=== PATIENT | male | born 1980 | race African-American/Black ===

== ENCOUNTER 2017-11-22 14:36 | Inpatient (IN) | payer SELFPAY ==
[~2017-11-22] VITALS: Ht 190.5 cm; Wt 68.0 kg
[2017-11-22 14:56] LABS: BASO # 0.1 x10^3/uL (0.0-0.2); BASO % 1 % (0-3); EOS # 0.3 x10^3/uL (0.0-0.7); EOS % 3 % (0-3); HEMATOCRIT 42.4 % (39.0-53.0); HEMOGLOBIN 14.2 g/dL (13.0-17.5); LYMPH # 4.7 x10^3/uL (1.0-4.8); LYMPH % 53 % (24-48); MEAN CORPUSCULAR HEMOGLOBIN 29 pg (25-35); MEAN CORPUSCULAR HGB CONC 34 g/dL (31-37); MEAN CORPUSCULAR VOLUME 87 fL (79-100); MONO # 0.6 x10^3/uL (0.0-1.1); MONO % 7 % (0-9); NEUT # 3.1 x10^3uL (1.8-7.7); NEUT % 36 % (31-73); PLATELET COUNT 238 x10^3/uL (140-400); RED BLOOD COUNT 4.89 x10^6/uL (4.30-5.70); RED CELL DISTRIBUTION WIDTH 14.6 % (11.5-14.5); WHITE BLOOD COUNT 8.8 x10^3/uL (4.0-11.0)
[2017-11-22 15:05] LABS: CALCIUM 9.1 mg/dL (8.5-10.1); CREATININE 1.6 mg/dL (0.7-1.3); GFR 59.5; POTASSIUM 3.7 mmol/L (3.5-5.1)
--- NOTE | 2017-11-22 15:09 | PHYS DOC ---
Past Medical History Past Medical History: Bipolar, Depression Past Surgical History: Other Additional Past Surgical Histo: I&D scrutum/rectum, hemhorridectomy Alcohol Use: Occasionally Drug Use: Marijuana, Other Social History Narrative: MDMA Adult General Chief Complaint Chief Complaint: CHEST PAIN HPI HPI 37-year-old male presenting with chest pain. Sharp shooting pain that radiates into the left arm. It is moderate, he denies recent cocaine use though reports ecstasy use approximately a week ago. He denies fevers chills or cough. He denies recent retching. He denies family history of heart disease hypertension diabetes or high cholesterol. He denies unilateral leg swelling hemoptysis personal or family should blood clotting disorders or recent surgery or immobilization. He denies a family history of Marfan's or Carrie-Danlos syndrome. Review of systems is negative for abdominal pain nausea vomiting diaphoresis fevers chills. All other review of systems is negative unless otherwise noted in history of present illness. ED course: 37-year-old male presenting to the emergency department today with chest pain. EKG obtained and reviewed by myself shows sinus rhythm with a mildly bradycardic rate. ST segments are congruent. Not suggestive of ACS. Blood work obtained along with chest x-ray. X-ray shows moderate-sized pneumothorax. Chest tube pigtail valve catheter placed which reexpanded lung. X- ray afterwards shows small residual pneumothorax. I spoke with Dr. Gibbs who agrees with the care so far. We will admit the patient to Dr. STONER for further evaluation treatment and care. HEART SCORE History Slightly suspicious 0 Moderately suspicious +1 Highly suspicious +2 EKG 1 point: No ST depression but LBBB, LVH, repolarization changes (ex: digoxin); 2 points: ST depression/elevation not due to LBBB, LVH, or digoxin Normal 0 Non-specific repolarization disturbance +[address] depression +2 Age <45 0 45-65 +1 65 +2 Risk factors Risk factors: HTN, hypercholesterolemia, DM, obesity (BMI >30 kg/m), smoking (current, or smoking cessation 3 mo), positive family history (parent or sibling with CVD before age 65); atherosclerotic disease: prior CT, PCI/CABG, CVA/TIA, or peripheral arterial disease No known risk factors 0 1-2 risk factors +1 3 risk factors or history of atherosclerotic disease +2 Initial troponin Use local assays and corresponding cutoffs normal limit 0 1-2 normal limit +1 >2 normal limit +2 Total 0 points Wells Score Clinical signs and symptoms of DVT No 0 Yes +3 PE is #1 diagnosis OR equally likely No 0 Yes +3 Heart rate > 100 No 0 Yes +1.5 Immobilization at least 3 days OR surgery in the previous 4 weeks No 0 Yes +1.5 Previous, objectively diagnosed PE or DVT No 0 Yes +1.5 Hemoptysis No 0 Yes +1 Malignancy w/ treatment within 6 months or palliative No 0 Yes +1 TOTAL 0 Points Review of Systems Review of Systems SEE ABOVE. Current Medications Current Medications Current Medications Medications (Trade) Dose Ordered Sig/Heriberto Start Time Stop Time Status Last Admin Dose Admin Acetaminophen (Tylenol) 650 mg PRN Q6HRS PRN 11/22/17 18:00 Acetaminophen/ Hydrocodone Bitart (Lortab 5/325) 1 tab PRN Q4HRS PRN 11/22/17 18:00 Docusate Sodium (Colace) 100 mg PRN DAILY PRN 11/22/17 18:00 Enoxaparin Sodium (Lovenox 40mg Syringe) 40 mg DAILY 11/23/17 09:00 Fentanyl Citrate (Fentanyl 2ml Vial) 50 mcg PRN Q30MIN PRN 11/22/17 16:45 11/22/17 16:50 50 MCG Morphine Sulfate (Morphine Sulfate) 2 mg PRN Q2HR PRN 11/22/17 18:00 Multi-Ingredient Mouthwash/Gargle (Gi Cocktail) 20 ml 1X ONCE 11/22/17 15:15 11/22/17 15:16 DC 11/22/17 15:30 20 ML Ondansetron HCl (Zofran) 4 mg PRN Q6HRS PRN 11/22/17 18:00 Sodium Chloride 1,000 ml @ 100 mls/hr Q10H 11/22/17 16:41 11/23/17 16:40 11/22/17 16:41 100 MLS/HR Tramadol HCl (Ultram) 50 mg PRN Q6HRS PRN 11/22/17 18:00 Allergies Allergies Allergies Coded Allergies Type Severity Reaction Last Updated Verified No Known Drug Allergies 07/10/13 No Physical Exam Physical Exam SEE ABOVE Constitutional: Well developed, well nourished, no acute distress, non-toxic appearance. [] HENT: Normocephalic, atraumatic, bilateral external ears normal, oropharynx moist, no oral exudates, nose normal. [] Eyes: PERRLA, EOMI, conjunctiva normal, no discharge. [] Neck: Normal range of motion, no tenderness, supple, no stridor. [] Cardiovascular:Heart rate regular rhythm, no murmur [] Lungs & Thorax: Patient has lung sounds bilaterally without wheezing. Abdomen: Bowel sounds normal, soft, no tenderness, no masses, no pulsatile masses. [] Skin: Warm, dry, no erythema, no rash. [] Back: No tenderness, no CVA tenderness. [] Extremities: No tenderness, no cyanosis, no clubbing, ROM intact, no edema. [] no signs of dvt Neurologic: Alert and oriented X 3, normal motor function, normal sensory function, no focal deficits noted. [] Psychologic: Affect normal, judgement normal, mood normal. [] Current Patient Data Vital Signs Vital Signs Date Time Temp Pulse Resp B/P (MAP) Pulse Ox O2 Delivery O2 Flow Rate FiO2 11/22/17 16:56 67 19 127/66 (86) 99 Room Air 11/22/17 14:36 98.0 98.0 Lab Values Laboratory Tests Test 11/22/17 14:50 White Blood Count 8.8 x10^3/uL (4.0-11.0) Red Blood Count 4.89 x10^6/uL (4.30-5.70) Hemoglobin 14.2 g/dL (13.0-17.5) Hematocrit 42.4 % (39.0-53.0) Mean Corpuscular Volume 87 fL (79-100) Mean Corpuscular Hemoglobin 29 pg (25-35) Mean Corpuscular Hemoglobin Concent 34 g/dL (31-37) Red Cell Distribution Width 14.6 % (11.5-14.5) H Platelet Count 238 x10^3/uL (140-400) Neutrophils (%) (Auto) 36 % (31-73) Lymphocytes (%) (Auto) 53 % (24-48) H Monocytes (%) (Auto) 7 % (0-9) Eosinophils (%) (Auto) 3 % (0-3) Basophils (%) (Auto) 1 % (0-3) Neutrophils # (Auto) 3.1 x10^3uL (1.8-7.7) Lymphocytes # (Auto) 4.7 x10^3/uL (1.0-4.8) Monocytes # (Auto) 0.6 x10^3/uL (0.0-1.1) Eosinophils # (Auto) 0.3 x10^3/uL (0.0-0.7) Basophils # (Auto) 0.1 x10^3/uL (0.0-0.2) D-Dimer (Brigette) < 0.27 ug/mlFEU Sodium Level 141 mmol/L (136-145) Potassium Level 3.7 mmol/L (3.5-5.1) Chloride Level 104 mmol/L (98-107) Carbon Dioxide Level 26 mmol/L (21-32) Anion Gap 11 (6-14) Blood Urea Nitrogen 17 mg/dL (8-26) Creatinine 1.6 mg/dL (0.7-1.3) H Estimated GFR (Cockcroft-Gault) 59.5 Glucose Level 129 mg/dL (70-99) H Calcium Level 9.1 mg/dL (8.5-10.1) Total Bilirubin 0.4 mg/dL (0.2-1.0) Direct Bilirubin 0.1 mg/dL (0.0-0.2) Aspartate Amino Transferase (AST) 17 U/L (15-37) Alanine Aminotransferase (ALT) 22 U/L (16-63) Alkaline Phosphatase 48 U/L (46-116) Troponin I Quantitative < 0.017 ng/mL (0.000-0.055) Total Protein 7.6 g/dL (6.4-8.2) Albumin 3.9 g/dL (3.4-5.0) Lipase 135 U/L (73-393) Laboratory Tests 11/22/17 14:50 Laboratory Tests 11/22/17 14:50 EKG EKG [] Radiology/Procedures Radiology/Procedures [] Course & Med Decision Making Course & Med Decision Making Pertinent Labs and Imaging studies reviewed. (See chart for details) [] Dragon Disclaimer Dragon Disclaimer This electronic medical record was generated, in whole or in part, using a voice recognition dictation system. Departure Departure Impression: Primary Impression: Chest pain Additional Impressions: Pneumothorax Pneumothorax on left Disposition: 09 ADMITTED INPATIENT Condition: STABLE Referrals: NON,STAFF (PCP) Chest Tube Chest Tube Indication: MOD left sided ptx Consent: The patient provided consent for this procedure. Procedure: The patient was placed in an appropriate position. Local anesthesia over the insertion site was 5 cc of 1%lidocaine. An small incision was made. A small pigtail catheter was advanced over the rib until access was obtained into the pleural cavity. Pigtail catheter was connected to pleurivac and then to a one way valve. The tube was sutured in place and the site was covered with an occlusive dressing. Breath sounds after the procedure were bilateral. A chest x-ray was obtained to evaluate placement which showed very mild residual. The patient tolerated the procedure well. Complications: none. Critical Care Time Critical care time spent was 36 minutes exclusive of procedures. Time was spent evaluating the patient, ordering the administration of medications, reevaluating the patient, discussing with the admitting provider and documenting. Problem Qualifiers OCTAVIO SHARMA MD Nov 22, 2017 15:09
[2017-11-22 15:11] LABS: ALBUMIN 3.9 g/dL (3.4-5.0); DIRECT BILIRUBIN 0.1 mg/dL (0.0-0.2); TOTAL BILIRUBIN 0.4 mg/dL (0.2-1.0); TOTAL PROTEIN 7.6 g/dL (6.4-8.2)
[2017-11-22] MEDS ORDERED: LIDO:MAALOX 1:1 20 ML SINGLE DOSE. PO ONE (15:15)
--- NOTE | 2017-11-22 15:52 | RAD ---
Portable chest, 11/22/2017: HISTORY: Chest pain The heart size is normal. There is a moderate sized left pneumothorax estimated at 30-40 percent in volume. There is no definite evidence of tension. No pulmonary infiltrate is seen. There is no evidence of pleural fluid. IMPRESSION: Moderate sized left pneumothorax. Note: The findings were called to personnel the [facility] ER at 3:48 PM on 11/22/2017. Electronically signed by: Remy Adams MD (11/22/2017 3:49 PM) [facility]
--- NOTE | 2017-11-22 15:52 | EKG ---
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
[2017-11-22] MEDS ORDERED: fentaNYL PF VIAL 100 MCG/2 ML VIAL ONE (16:21)
[2017-11-22] MEDS ORDERED: fentaNYL PF VIAL 100 MCG/2 ML VIAL IV ONE (16:30)
[2017-11-22] MEDS: IV NORMAL SALINE 1000ML BAG 1,000 ML IV SCH (16:41)
[2017-11-22] MEDS ORDERED: ONDANSETRON PF 4 MG/2 ML VIAL. IV PRN ×2 (16:45→18:00)
[2017-11-22] MEDS ORDERED: MORPHINE SULFATE 2 MG/ML VIAL. IV PRN ×2 (16:45→18:00)
--- NOTE | 2017-11-22 16:49 | RAD ---
EXAM: Chest, single view. HISTORY: Thoracostomy tube placement. COMPARISON: Radiograph obtained on the same date. FINDINGS: A frontal view of the chest is obtained. There has been placement of a left thoracostomy tube overlying the left upper lung. There has been interval decrease in a now small left pneumothorax. There is no pleural effusion. The heart is normal in size. IMPRESSION: Decrease in a now small left pneumothorax status post thoracostomy tube placement. Electronically signed by: Nereyda Glover MD (11/22/2017 4:45 PM) [place] [id number]
[2017-11-22] MEDS: fentaNYL PF VIAL 100 MCG/2 ML VIAL IV PRN ×2 (16:50→20:50)
[2017-11-22] MEDS ORDERED: ACETAMINOPHEN 325 MG TABLET. PO PRN (18:00)
[2017-11-22] MEDS ORDERED: DOCUSATE SODIUM 100 MG CAPSULE. PO PRN (18:00)
[2017-11-22] MEDS ORDERED: traMADol 50 MG TABLET PO PRN (18:00)
[2017-11-22 20:05] VITALS: BP 127/69
--- NOTE | 2017-11-22 20:06 | RAD ---
AP portable chest radiograph 11/22/2017 Clinical History: Pneumothorax follow-up. An AP erect portable digital radiograph of the chest was obtained. Comparison study is dated earlier today at 1629 hours. Small bore left-sided thoracostomy tube is unchanged position. There is a small moderate-sized left pneumothorax which has increased in size since the previous study. The cardiac and mediastinal silhouettes are within normal limits in size and configuration. The right lung is clear. No pulmonary infiltrate or pleural effusion is noted. The osseous structures are unchanged. Impression: Left-sided thoracostomy tube is unchanged position. There has been interval increase in size in the small to moderate-sized left pneumothorax. Electronically signed by: Malcom Connell MD (11/22/2017 8:02 PM) [facility]
--- NOTE | 2017-11-22 20:14 | PDOC1 ---
History and Physical Date of Admission Date of Admission 11/22/17 Identification/Chief Complaint Chief Complaint sob, chest pain Source Source: Chart review, Patient History of Present Illness History of Present Illness HPI HPI 37-year-old male presenting with chest pain and sob today. pT was walking today outside, suddenly felt left side chest pain, sharp, with sob, felt could not breath, came to ER. <1ppd. denies trauma, no cough, fever, chills. ER xr Showed left side moderate pneumothorax, got pig tail chest tube by ERP. cxr SHOWED better and sob better, still pain tho. Past Medical History Past Medical History anxiety Past Surgical History Past Surgical History I&D scrutum/rectum, hemhorridectomy Family History Family History: Hypertension Social History Smoke: <1 pack per day ALCOHOL: social Drugs: Marijuana Current Problem List Problem List Problems Medical Problems: (1) Chest pain Status: Acute (2) Pneumothorax Status: Acute (3) Pneumothorax on left Status: Acute Current Medications Current Medications Current Medications Medications (Trade) Dose Ordered Sig/Heriberto Start Time Stop Time Status Last Admin Dose Admin Acetaminophen (Tylenol) 650 mg PRN Q6HRS PRN 11/22/17 18:00 Acetaminophen/ Hydrocodone Bitart (Lortab 5/325) 1 tab PRN Q4HRS PRN 11/22/17 18:00 Docusate Sodium (Colace) 100 mg PRN DAILY PRN 11/22/17 18:00 Enoxaparin Sodium (Lovenox 40mg Syringe) 40 mg DAILY 11/23/17 09:00 Fentanyl Citrate (Fentanyl 2ml Vial) 50 mcg PRN Q30MIN PRN 11/22/17 16:45 11/22/17 16:50 50 MCG Morphine Sulfate (Morphine Sulfate) 2 mg PRN Q2HR PRN 11/22/17 18:00 Multi-Ingredient Mouthwash/Gargle (Gi Cocktail) 20 ml 1X ONCE 11/22/17 15:15 11/22/17 15:16 DC 11/22/17 15:30 20 ML Ondansetron HCl (Zofran) 4 mg PRN Q6HRS PRN 11/22/17 18:00 Sodium Chloride 1,000 ml @ 100 mls/hr Q10H 11/22/17 16:41 11/23/17 16:40 11/22/17 16:41 100 MLS/HR Tramadol HCl (Ultram) 50 mg PRN Q6HRS PRN 11/22/17 18:00 Allergies Allergies Allergies Coded Allergies Type Severity Reaction Last Updated Verified No Known Drug Allergies 07/10/13 No ROS Review of System CONSTITUTIONAL: No fever or chills EYES: No recent changes SKIN: No rash or itching CARDIOVASCULAR: No chest pain, syncope, palpitations, or edema RESPIRATORY: No SOB or cough GASTROINTESTINAL: No nausea, vomiting or abdominal pain NEUROLOGICAL: No headaches or weakness ENDOCRINE: No cold or heat intolerance GENITOURINARY: No urgency or frequency of urination MUSCULOSKELETAL: No back pain or joint pain LYMPHATICS: No enlarged lymph nodes PSYCHIATRIC: No anxiety or depression Physical Exam Physical Exam GEN.: No apparent distress. Alert and oriented. HEENT: Head is normocephalic, atraumatic NECK: Supple. LUNGS: decreased bs on left side, has a chest tube in place. HEART: RRR, S1, S2 present. Peripheral pulses intact ABDOMEN: Soft, nontender. Positive bowel sounds. EXTREMITIES: Without any cyanosis. NEUROLOGIC: Normal speech, normal tone PSYCHIATRIC: Normal affect, normal mood. SKIN: No ulcerations Vitals Vitals Vital Signs Date Time Temp Pulse Resp B/P (MAP) Pulse Ox O2 Delivery O2 Flow Rate FiO2 11/22/17 19:00 62 16 119/68 (85) 100 Room Air 11/22/17 14:36 98.0 98.0 Labs Labs Laboratory Tests Test 11/22/17 14:50 White Blood Count 8.8 x10^3/uL (4.0-11.0) Red Blood Count 4.89 x10^6/uL (4.30-5.70) Hemoglobin 14.2 g/dL (13.0-17.5) Hematocrit 42.4 % (39.0-53.0) Mean Corpuscular Volume 87 fL (79-100) Mean Corpuscular Hemoglobin 29 pg (25-35) Mean Corpuscular Hemoglobin Concent 34 g/dL (31-37) Red Cell Distribution Width 14.6 % (11.5-14.5) Platelet Count 238 x10^3/uL (140-400) Neutrophils (%) (Auto) 36 % (31-73) Lymphocytes (%) (Auto) 53 % (24-48) Monocytes (%) (Auto) 7 % (0-9) Eosinophils (%) (Auto) 3 % (0-3) Basophils (%) (Auto) 1 % (0-3) Neutrophils # (Auto) 3.1 x10^3uL (1.8-7.7) Lymphocytes # (Auto) 4.7 x10^3/uL (1.0-4.8) Monocytes # (Auto) 0.6 x10^3/uL (0.0-1.1) Eosinophils # (Auto) 0.3 x10^3/uL (0.0-0.7) Basophils # (Auto) 0.1 x10^3/uL (0.0-0.2) D-Dimer (Brigette) < 0.27 ug/mlFEU Sodium Level 141 mmol/L (136-145) Potassium Level 3.7 mmol/L (3.5-5.1) Chloride Level 104 mmol/L (98-107) Carbon Dioxide Level 26 mmol/L (21-32) Anion Gap 11 (6-14) Blood Urea Nitrogen 17 mg/dL (8-26) Creatinine 1.6 mg/dL (0.7-1.3) Estimated GFR (Cockcroft-Gault) 59.5 Glucose Level 129 mg/dL (70-99) Calcium Level 9.1 mg/dL (8.5-10.1) Total Bilirubin 0.4 mg/dL (0.2-1.0) Direct Bilirubin 0.1 mg/dL (0.0-0.2) Aspartate Amino Transf (AST/SGOT) 17 U/L (15-37) Alanine Aminotransferase (ALT/SGPT) 22 U/L (16-63) Alkaline Phosphatase 48 U/L (46-116) Troponin I Quantitative < 0.017 ng/mL (0.000-0.055) Total Protein 7.6 g/dL (6.4-8.2) Albumin 3.9 g/dL (3.4-5.0) Lipase 135 U/L (73-393) Laboratory Tests Test 11/22/17 14:50 White Blood Count 8.8 x10^3/uL (4.0-11.0) Red Blood Count 4.89 x10^6/uL (4.30-5.70) Hemoglobin 14.2 g/dL (13.0-17.5) Hematocrit 42.4 % (39.0-53.0) Mean Corpuscular Volume 87 fL (79-100) Mean Corpuscular Hemoglobin 29 pg (25-35) Mean Corpuscular Hemoglobin Concent 34 g/dL (31-37) Red Cell Distribution Width 14.6 % (11.5-14.5) Platelet Count 238 x10^3/uL (140-400) Neutrophils (%) (Auto) 36 % (31-73) Lymphocytes (%) (Auto) 53 % (24-48) Monocytes (%) (Auto) 7 % (0-9) Eosinophils (%) (Auto) 3 % (0-3) Basophils (%) (Auto) 1 % (0-3) Neutrophils # (Auto) 3.1 x10^3uL (1.8-7.7) Lymphocytes # (Auto) 4.7 x10^3/uL (1.0-4.8) Monocytes # (Auto) 0.6 x10^3/uL (0.0-1.1) Eosinophils # (Auto) 0.3 x10^3/uL (0.0-0.7) Basophils # (Auto) 0.1 x10^3/uL (0.0-0.2) D-Dimer (Brigette) < 0.27 ug/mlFEU Sodium Level 141 mmol/L (136-145) Potassium Level 3.7 mmol/L (3.5-5.1) Chloride Level 104 mmol/L (98-107) Carbon Dioxide Level 26 mmol/L (21-32) Anion Gap 11 (6-14) Blood Urea Nitrogen 17 mg/dL (8-26) Creatinine 1.6 mg/dL (0.7-1.3) Estimated GFR (Cockcroft-Gault) 59.5 Glucose Level 129 mg/dL (70-99) Calcium Level 9.1 mg/dL (8.5-10.1) Total Bilirubin 0.4 mg/dL (0.2-1.0) Direct Bilirubin 0.1 mg/dL (0.0-0.2) Aspartate Amino Transf (AST/SGOT) 17 U/L (15-37) Alanine Aminotransferase (ALT/SGPT) 22 U/L (16-63) Alkaline Phosphatase 48 U/L (46-116) Troponin I Quantitative < 0.017 ng/mL (0.000-0.055) Total Protein 7.6 g/dL (6.4-8.2) Albumin 3.9 g/dL (3.4-5.0) Lipase 135 U/L (73-393) VTE Prophylaxis Ordered VTE Prophylaxis Devices: Yes VTE Pharmacological Prophylaxi: Yes Assessment/Plan Assessment/Plan sob, chest pain 2/2 left spontaneous pneumothorax bipolar disorder with depression smoker drug use with marijuana. plan: has chest tube, pulm consult CXR tmr may need suction if sob or CXR worse pain control dvt tmr DELBERT STONER MD Nov 22, 2017 20:14
[2017-11-22] MEDS: HYDROcodone/APAP 5/325MG 1 TAB TABLET PO PRN (20:50)
[2017-11-22 23:00] VITALS: BP 107/62
[2017-11-23] VITALS (9 sets, daily range): BP systolic 104–174; BP diastolic 63–98
[2017-11-23] MEDS: IV NORMAL SALINE 1000ML BAG 1,000 ML IV SCH ×2 (02:41→12:34)
[2017-11-23 05:47] LABS: BASO % 0 % (0-3); EOS % 1 % (0-3); HEMATOCRIT 41.5 % (39.0-53.0); HEMOGLOBIN 13.7 g/dL (13.0-17.5); LYMPH # 2.3 x10^3/uL (1.0-4.8); LYMPH % 25 % (24-48); MEAN CORPUSCULAR HEMOGLOBIN 29 pg (25-35); MEAN CORPUSCULAR HGB CONC 33 g/dL (31-37); MEAN CORPUSCULAR VOLUME 86 fL (79-100); MONO # 0.5 x10^3/uL (0.0-1.1); MONO % 6 % (0-9); NEUT # 6.4 x10^3uL (1.8-7.7); NEUT % 69 % (31-73); PLATELET COUNT 191 x10^3/uL (140-400); RED BLOOD COUNT 4.81 x10^6/uL (4.30-5.70); RED CELL DISTRIBUTION WIDTH 14.1 % (11.5-14.5); WHITE BLOOD COUNT 9.2 x10^3/uL (4.0-11.0)
[2017-11-23 06:06] LABS: CALCIUM 8.8 mg/dL (8.5-10.1); GFR 102.3; POTASSIUM 3.7 mmol/L (3.5-5.1)
[2017-11-23] MEDS: HYDROcodone/APAP 5/325MG 1 TAB TABLET PO PRN ×4 (07:38→21:11)
--- NOTE | 2017-11-23 08:31 | RAD ---
EXAM: PORTABLE CHEST 1V DATE: 11/23/2017 7:43 AM INDICATION: PNUEMOTHORAX COMPARISON: No Prior FINDINGS/ IMPRESSION: Left chest tube is in position. Interval enlargement of the left pneumothorax. There is no evidence for tension. Cardiomediastinal silhouette is stable. Left lung partial atelectasis. No pleural effusion. Electronically signed by: Moises Vargas MD (11/23/2017 8:27 AM) [facility]
[2017-11-23] MEDS: ENOXAPARIN 40 MG/0.4 ML SYRINGE. SQ SCH (08:32)
[2017-11-23] MEDS ORDERED: LIDOCAINE 1% PF 30 ML VIAL. INJ ONE (09:15)
[2017-11-23] MEDS ORDERED: MORPHINE SULFATE 2 MG/ML VIAL. IV ONE (09:30)
--- NOTE | 2017-11-23 09:46 | CONS ---
DATE OF CONSULTATION: ATTENDING PHYSICIAN: Dr. Schneider. INDICATION: Pneumothorax, spontaneous. HISTORY OF PRESENT ILLNESS: The patient is 37-year-old who has history of tobacco use for 12 years and also history of marijuana use. The patient states he did marijuana yesterday. He felt chest pain on the left side and some shortness of breath. He came to the Emergency Room, where a chest x-ray revealed moderate size left pneumothorax. ER physician inserted a Cook catheter with some reexpansion of the lung. However, his chest x-ray last night showed increase in pneumothorax and another x-ray this morning showed further increase in the pneumothorax. He does feel a little bit short of air. However, saturations still 97% on room air. He has no prior history of spontaneous pneumothorax. PAST MEDICAL HISTORY: Anxiety. PAST SURGICAL HISTORY: Including I and D around scrotum and hemorrhoidectomy. FAMILY HISTORY: Hypertension. SOCIAL HISTORY: Smoker, less than 1 pack per day, also smokes marijuana. ALLERGIES: None. MEDICATIONS: Reviewed, as listed in the MRAD. REVIEW OF SYSTEMS: Twelve-point system obtained. Pertinent positives discussed in my history of present illness, otherwise noncontributory. All systems that were negative were reviewed as well. PHYSICAL EXAMINATION: VITAL SIGNS: Stable, afebrile, pulse ox 97% room air. NECK: Supple. LUNGS: Diminished breath sounds left base. CARDIOVASCULAR: Regular rate. ABDOMEN: Soft. EXTREMITIES: With no pitting edema. LABORATORY DATA: Reviewed. White cell count 9.2, hemoglobin 13.7. Chemistries show BUN 12, creatinine 1.0. IMPRESSION: 1. Spontaneous left-sided pneumothorax, probably triggered by inhaling marijuana. He probably may have some apical blebs as well. He is tall and skinny. His chest tube, which was small bore, placed in the ER, did result in initial reexpansion; however, his pneumothorax has worsened and he will need a bigger size chest tube. 2. History of marijuana use and tobacco use. RECOMMENDATIONS: 1. We will place a 24-Taiwanese chest tube. 2. Once the lung re-expands, we will do a CT chest to assess for apical blebs. 3. Smoking cessation counseling provided. 4. P.r.n. oxygen. 5. Pain control. 6. Discussed with RN. MIKE MIRANDA MD DR: JACY/liam JOB#: [id number] / [id number] [place]
--- NOTE | 2017-11-23 10:25 | OP ---
DATE OF SURGERY: PROCEDURE: Left chest tube placement. INDICATIONS: Increasing left pneumothorax. PROCEDURE: Informed consent was obtained from the patient. All risks and benefits were explained. 2 mg of IV morphine was given to the patient prior to procedure. After sterile precaution, the skin and the subcutaneous tissue and intercostal muscles were anesthetized with 1% lidocaine. With the help of a scalpel, a small incision was made at the left fourth intercostal space and with blunt dissection, the left pleural space was reached. A 24-Montserr[place]ian chest tube was introduced into the left pleural space. Minimal air leak was seen and sutures were applied and chest tube was secured. Chest x-ray has been ordered. MIKE MIRANDA MD DR: JACY/liam JOB#: [id number] / [id number] [place]
[2017-11-23] MEDS: fentaNYL PF VIAL 100 MCG/2 ML VIAL IV PRN ×4 (10:37→21:11)
--- NOTE | 2017-11-23 10:51 | RAD ---
EXAM: CHEST AP ONLY DATE: 11/23/2017 10:04 AM INDICATION: CHEST TUBE PLACEMENT COMPARISON: 11/23/2017, 11/22/2017 FINDINGS: Interval removal of the small caliber previously seen left chest tube with replacement with a large caliber left chest tube. Trace left pneumothorax is seen with reexpansion of the left lung. No focal parenchymal airspace opacity. No pleural effusion or right pneumothorax The heart is not enlarged. IMPRESSION: Interval replacement of left chest tube with trace residual pneumothorax and reexpansion of the left lung. Electronically signed by: Moises Vargas MD (11/23/2017 10:48 AM) [facility]
[2017-11-23] MEDS: KETOROLAC 15 MG/ML VIAL. IV PRN (11:12)
--- NOTE | 2017-11-23 13:32 | PDOC ---
PROGRESS NOTES Chief Complaint Chief Complaint sob, chest pain 2/2 left spontaneous pneumothorax s/p chest tube 11/23 bipolar disorder with depression smoker drug use with marijuana. plan: has chest tube placement 11/23. has a pigtail chest tube with suction done in ER 11/22. seems erp rechecked CXR at 8pm showing worse CXR , not sure why nothing was done till today. i was not paged pulm consulted. redo chest tube CXR tmr pain control dvt ppx History of Present Illness History of Present Illness ROS: no fever, chills worse CXR require big chest tube placement Vitals Vitals Vital Signs Date Time Temp Pulse Resp B/P (MAP) Pulse Ox O2 Delivery O2 Flow Rate FiO2 11/23/17 13:04 19 98 Room Air 11/23/17 10:30 44 145/87 (106) 11/23/17 07:00 98.8 98.8 Physical Exam General: Alert, Oriented X3, Cooperative Heart: Regular rate, Normal S1, Normal S2 Lungs: Clear Abdomen: Normal bowel sounds, Soft Extremities: No clubbing, No cyanosis Skin: No rashes Labs LABS Laboratory Tests Test 11/22/17 14:50 11/23/17 05:05 White Blood Count 8.8 x10^3/uL (4.0-11.0) 9.2 x10^3/uL (4.0-11.0) Red Blood Count 4.89 x10^6/uL (4.30-5.70) 4.81 x10^6/uL (4.30-5.70) Hemoglobin 14.2 g/dL (13.0-17.5) 13.7 g/dL (13.0-17.5) Hematocrit 42.4 % (39.0-53.0) 41.5 % (39.0-53.0) Mean Corpuscular Volume 87 fL (79-100) 86 fL (79-100) Mean Corpuscular Hemoglobin 29 pg (25-35) 29 pg (25-35) Mean Corpuscular Hemoglobin Concent 34 g/dL (31-37) 33 g/dL (31-37) Red Cell Distribution Width 14.6 % (11.5-14.5) 14.1 % (11.5-14.5) Platelet Count 238 x10^3/uL (140-400) 191 x10^3/uL (140-400) Neutrophils (%) (Auto) 36 % (31-73) 69 % (31-73) Lymphocytes (%) (Auto) 53 % (24-48) 25 % (24-48) Monocytes (%) (Auto) 7 % (0-9) 6 % (0-9) Eosinophils (%) (Auto) 3 % (0-3) 1 % (0-3) Basophils (%) (Auto) 1 % (0-3) 0 % (0-3) Neutrophils # (Auto) 3.1 x10^3uL (1.8-7.7) 6.4 x10^3uL (1.8-7.7) Lymphocytes # (Auto) 4.7 x10^3/uL (1.0-4.8) 2.3 x10^3/uL (1.0-4.8) Monocytes # (Auto) 0.6 x10^3/uL (0.0-1.1) 0.5 x10^3/uL (0.0-1.1) Eosinophils # (Auto) 0.3 x10^3/uL (0.0-0.7) 0.0 x10^3/uL (0.0-0.7) Basophils # (Auto) 0.1 x10^3/uL (0.0-0.2) 0.0 x10^3/uL (0.0-0.2) D-Dimer (Brigette) < 0.27 ug/mlFEU Sodium Level 141 mmol/L (136-145) 140 mmol/L (136-145) Potassium Level 3.7 mmol/L (3.5-5.1) 3.7 mmol/L (3.5-5.1) Chloride Level 104 mmol/L (98-107) 105 mmol/L (98-107) Carbon Dioxide Level 26 mmol/L (21-32) 24 mmol/L (21-32) Anion Gap 11 (6-14) 11 (6-14) Blood Urea Nitrogen 17 mg/dL (8-26) 12 mg/dL (8-26) Creatinine 1.6 mg/dL (0.7-1.3) 1.0 mg/dL (0.7-1.3) Estimated GFR (Cockcroft-Gault) 59.5 102.3 Glucose Level 129 mg/dL (70-99) 91 mg/dL (70-99) Calcium Level 9.1 mg/dL (8.5-10.1) 8.8 mg/dL (8.5-10.1) Total Bilirubin 0.4 mg/dL (0.2-1.0) Direct Bilirubin 0.1 mg/dL (0.0-0.2) Aspartate Amino Transf (AST/SGOT) 17 U/L (15-37) Alanine Aminotransferase (ALT/SGPT) 22 U/L (16-63) Alkaline Phosphatase 48 U/L (46-116) Troponin I Quantitative < 0.017 ng/mL (0.000-0.055) Total Protein 7.6 g/dL (6.4-8.2) Albumin 3.9 g/dL (3.4-5.0) Lipase 135 U/L (73-393) Assessment and Plan Assessmemt and Plan Problems Medical Problems: (1) Chest pain Status: Acute (2) Pneumothorax Status: Acute (3) Pneumothorax on left Status: Acute Comment Review of Relevant I have reviewed the following items geetha (where applicable) has been applied. Labs Laboratory Tests Test 11/22/17 14:50 11/23/17 05:05 White Blood Count 8.8 x10^3/uL (4.0-11.0) 9.2 x10^3/uL (4.0-11.0) Red Blood Count 4.89 x10^6/uL (4.30-5.70) 4.81 x10^6/uL (4.30-5.70) Hemoglobin 14.2 g/dL (13.0-17.5) 13.7 g/dL (13.0-17.5) Hematocrit 42.4 % (39.0-53.0) 41.5 % (39.0-53.0) Mean Corpuscular Volume 87 fL (79-100) 86 fL (79-100) Mean Corpuscular Hemoglobin 29 pg (25-35) 29 pg (25-35) Mean Corpuscular Hemoglobin Concent 34 g/dL (31-37) 33 g/dL (31-37) Red Cell Distribution Width 14.6 % (11.5-14.5) 14.1 % (11.5-14.5) Platelet Count 238 x10^3/uL (140-400) 191 x10^3/uL (140-400) Neutrophils (%) (Auto) 36 % (31-73) 69 % (31-73) Lymphocytes (%) (Auto) 53 % (24-48) 25 % (24-48) Monocytes (%) (Auto) 7 % (0-9) 6 % (0-9) Eosinophils (%) (Auto) 3 % (0-3) 1 % (0-3) Basophils (%) (Auto) 1 % (0-3) 0 % (0-3) Neutrophils # (Auto) 3.1 x10^3uL (1.8-7.7) 6.4 x10^3uL (1.8-7.7) Lymphocytes # (Auto) 4.7 x10^3/uL (1.0-4.8) 2.3 x10^3/uL (1.0-4.8) Monocytes # (Auto) 0.6 x10^3/uL (0.0-1.1) 0.5 x10^3/uL (0.0-1.1) Eosinophils # (Auto) 0.3 x10^3/uL (0.0-0.7) 0.0 x10^3/uL (0.0-0.7) Basophils # (Auto) 0.1 x10^3/uL (0.0-0.2) 0.0 x10^3/uL (0.0-0.2) D-Dimer (Brigette) < 0.27 ug/mlFEU Sodium Level 141 mmol/L (136-145) 140 mmol/L (136-145) Potassium Level 3.7 mmol/L (3.5-5.1) 3.7 mmol/L (3.5-5.1) Chloride Level 104 mmol/L (98-107) 105 mmol/L (98-107) Carbon Dioxide Level 26 mmol/L (21-32) 24 mmol/L (21-32) Anion Gap 11 (6-14) 11 (6-14) Blood Urea Nitrogen 17 mg/dL (8-26) 12 mg/dL (8-26) Creatinine 1.6 mg/dL (0.7-1.3) 1.0 mg/dL (0.7-1.3) Estimated GFR (Cockcroft-Gault) 59.5 102.3 Glucose Level 129 mg/dL (70-99) 91 mg/dL (70-99) Calcium Level 9.1 mg/dL (8.5-10.1) 8.8 mg/dL (8.5-10.1) Total Bilirubin 0.4 mg/dL (0.2-1.0) Direct Bilirubin 0.1 mg/dL (0.0-0.2) Aspartate Amino Transf (AST/SGOT) 17 U/L (15-37) Alanine Aminotransferase (ALT/SGPT) 22 U/L (16-63) Alkaline Phosphatase 48 U/L (46-116) Troponin I Quantitative < 0.017 ng/mL (0.000-0.055) Total Protein 7.6 g/dL (6.4-8.2) Albumin 3.9 g/dL (3.4-5.0) Lipase 135 U/L (73-393) Laboratory Tests Test 11/22/17 14:50 11/23/17 05:05 White Blood Count 8.8 x10^3/uL (4.0-11.0) 9.2 x10^3/uL (4.0-11.0) Red Blood Count 4.89 x10^6/uL (4.30-5.70) 4.81 x10^6/uL (4.30-5.70) Hemoglobin 14.2 g/dL (13.0-17.5) 13.7 g/dL (13.0-17.5) Hematocrit 42.4 % (39.0-53.0) 41.5 % (39.0-53.0) Mean Corpuscular Volume 87 fL (79-100) 86 fL (79-100) Mean Corpuscular Hemoglobin 29 pg (25-35) 29 pg (25-35) Mean Corpuscular Hemoglobin Concent 34 g/dL (31-37) 33 g/dL (31-37) Red Cell Distribution Width 14.6 % (11.5-14.5) 14.1 % (11.5-14.5) Platelet Count 238 x10^3/uL (140-400) 191 x10^3/uL (140-400) Neutrophils (%) (Auto) 36 % (31-73) 69 % (31-73) Lymphocytes (%) (Auto) 53 % (24-48) 25 % (24-48) Monocytes (%) (Auto) 7 % (0-9) 6 % (0-9) Eosinophils (%) (Auto) 3 % (0-3) 1 % (0-3) Basophils (%) (Auto) 1 % (0-3) 0 % (0-3) Neutrophils # (Auto) 3.1 x10^3uL (1.8-7.7) 6.4 x10^3uL (1.8-7.7) Lymphocytes # (Auto) 4.7 x10^3/uL (1.0-4.8) 2.3 x10^3/uL (1.0-4.8) Monocytes # (Auto) 0.6 x10^3/uL (0.0-1.1) 0.5 x10^3/uL (0.0-1.1) Eosinophils # (Auto) 0.3 x10^3/uL (0.0-0.7) 0.0 x10^3/uL (0.0-0.7) Basophils # (Auto) 0.1 x10^3/uL (0.0-0.2) 0.0 x10^3/uL (0.0-0.2) D-Dimer (Brigette) < 0.27 ug/mlFEU Sodium Level 141 mmol/L (136-145) 140 mmol/L (136-145) Potassium Level 3.7 mmol/L (3.5-5.1) 3.7 mmol/L (3.5-5.1) Chloride Level 104 mmol/L (98-107) 105 mmol/L (98-107) Carbon Dioxide Level 26 mmol/L (21-32) 24 mmol/L (21-32) Anion Gap 11 (6-14) 11 (6-14) Blood Urea Nitrogen 17 mg/dL (8-26) 12 mg/dL (8-26) Creatinine 1.6 mg/dL (0.7-1.3) 1.0 mg/dL (0.7-1.3) Estimated GFR (Cockcroft-Gault) 59.5 102.3 Glucose Level 129 mg/dL (70-99) 91 mg/dL (70-99) Calcium Level 9.1 mg/dL (8.5-10.1) 8.8 mg/dL (8.5-10.1) Total Bilirubin 0.4 mg/dL (0.2-1.0) Direct Bilirubin 0.1 mg/dL (0.0-0.2) Aspartate Amino Transf (AST/SGOT) 17 U/L (15-37) Alanine Aminotransferase (ALT/SGPT) 22 U/L (16-63) Alkaline Phosphatase 48 U/L (46-116) Troponin I Quantitative < 0.017 ng/mL (0.000-0.055) Total Protein 7.6 g/dL (6.4-8.2) Albumin 3.9 g/dL (3.4-5.0) Lipase 135 U/L (73-393) Medications Current Medications Multi-Ingredient Mouthwash/Gargle (Gi Cocktail) 20 ml 1X ONCE PO Last administered on 11/22/17at 15:30; Start 11/22/17 at 15:15; Stop 11/22/17 at 15:16 ; Status DC Fentanyl Citrate (Fentanyl 2ml Vial) 100 mcg STK-MED ONCE .ROUTE ; Start at 16:21; Stop 11/22/17 at 16:22; Status DC Fentanyl Citrate (Fentanyl 2ml Vial) 50 mcg 1X ONCE IV Last administered on at 16:27; Start 11/22/17 at 16:30; Stop 11/22/17 at 16:31; Status DC Ondansetron HCl (Zofran) 4 mg PRN Q8HRS PRN IV NAUSEA/VOMITING; Start 11/22/17 at 16:45; Stop 11/22/17 at 17:58; Status DC Morphine Sulfate (Morphine Sulfate) 2 mg PRN Q2HR PRN IV PAIN; Start 11/22/17 at 16:45; Stop 11/22/17 at 17:58; Status DC Sodium Chloride 1,000 ml @ 100 mls/hr Q10H IV Last administered on 11/23/17at 12:34; Start 11/22/17 at 16:41; Stop 11/23/17 at 16:40 Fentanyl Citrate (Fentanyl 2ml Vial) 50 mcg PRN Q30MIN PRN IV SEVERE PAIN Last administered on 11/23/17at 10:37; Start 11/22/17 at 16:45; Stop 11/23/17 at 10:37 ; Status DC Acetaminophen (Tylenol) 650 mg PRN Q6HRS PRN PO FEVER; Start 11/22/17 at 18:00 Ondansetron HCl (Zofran) 4 mg PRN Q6HRS PRN IV NAUSEA/VOMITING; Start 11/22/17 at 18:00 Morphine Sulfate (Morphine Sulfate) 2 mg PRN Q2HR PRN IV MODERATE TO SEVERE PAIN Last administered on 11/23/17at 10:15; Start 11/22/17 at 18:00 Tramadol HCl (Ultram) 50 mg PRN Q6HRS PRN PO MILD TO MODERATE PAIN; Start 11/22 at 18:00 Docusate Sodium (Colace) 100 mg PRN DAILY PRN PO CONSTIPATION; Start 11/22/17 at 18:00 Acetaminophen/ Hydrocodone Bitart (Lortab 5/325) 1 tab PRN Q4HRS PRN PO SEVERE PAIN Last administered on 11/23/17at 12:34; Start 11/22/17 at 18:00 Enoxaparin Sodium (Lovenox 40mg Syringe) 40 mg DAILY SQ ; Start 11/23/17 at 09: 00 Lidocaine HCl (Xylocaine 1% Pf 30ml Vial) 10 ml 1X ONCE INJ ; Start 11/23/17 at 09:15; Stop 11/23/17 at 09:16; Status DC Morphine Sulfate (Morphine Sulfate) 2 mg 1X ONCE IV Last administered on at 10:15; Start 11/23/17 at 09:30; Stop 11/23/17 at 09:31; Status DC Ketorolac Tromethamine (Toradol 15mg Vial) 15 mg PRN Q6HRS PRN IV MODERATE PAIN Last administered on 11/23/17at 11:12; Start 11/23/17 at 11:00; Stop at 10:59 Fentanyl Citrate (Fentanyl 2ml Vial) 25 mcg PRN Q2HR PRN IV MODERATE TO SEVERE PAIN Last administered on 11/23/17at 12:34; Start 11/23/17 at 12:30 Active Scripts Active Reported No Known Medications Prior To Admisstion (Info) Each 1 Each Vitals/I & O Vital Sign - Last 24 Hours 11/22/17 11/22/17 11/22/17 11/22/17 14:36 15:30 16:00 16:30 Temp 98.0 98.0 Pulse 48 58 58 59 Resp 16 21 26 21 B/P (MAP) 128/42 (70) 110/60 (77) 119/79 (92) 120/60 (80) Pulse Ox 100 99 100 O2 Delivery Room Air Room Air Room Air Room Air 11/22/17 11/22/17 11/22/17 11/22/17 16:50 16:56 17:00 17:30 Pulse 67 58 60 Resp 16 18 B/P (MAP) 127/66 (86) 130/67 (88) 122/62 (82) Pulse Ox 99 100 100 O2 Delivery Room Air Room Air Room Air 11/22/17 11/22/17 11/22/17 11/22/17 18:00 18:30 19:00 20:00 Pulse 60 56 62 Resp 16 18 16 B/P (MAP) 123/66 (85) 125/71 (89) 119/68 (85) Pulse Ox 100 100 100 O2 Delivery Room Air Room Air Room Air Room Air 11/22/17 11/22/17 11/22/17 11/22/17 20:05 20:50 20:50 21:20 Temp 98.4 98.4 Pulse 62 Resp 20 B/P (MAP) 127/69 (88) Pulse Ox 97 O2 Delivery Room Air Room Air Room Air Room Air 11/22/17 11/23/17 11/23/17 11/23/17 23:00 03:00 07:00 07:05 Temp 98.4 98.3 98.8 98.4 98.3 98.8 Pulse 62 55 53 Resp 20 20 18 B/P (MAP) 107/62 (77) 114/63 (80) 104/75 (85) Pulse Ox 96 96 97 O2 Delivery Room Air Room Air Room Air Room Air 11/23/17 11/23/17 11/23/17 11/23/17 07:38 08:38 09:15 09:45 Pulse 50 56 Resp 18 18 B/P (MAP) 126/73 (90) Pulse Ox 99 99 O2 Delivery Room Air Room Air Room Air Room Air 11/23/17 11/23/17 11/23/17 11/23/17 10:00 10:15 10:15 10:15 Pulse 50 40 Resp 18 20 16 16 B/P (MAP) 174/98 (123) Pulse Ox 99 99 99 O2 Delivery Room Air Room Air Room Air Room Air 11/23/17 11/23/17 11/23/17 11/23/17 10:30 10:37 10:45 10:45 Pulse 44 Resp 18 16 B/P (MAP) 145/87 (106) Pulse Ox 99 99 99 99 O2 Delivery Room Air Room Air Room Air Room Air 11/23/17 11/23/17 11/23/17 12:34 12:34 13:04 Resp 16 16 19 Pulse Ox 99 99 98 O2 Delivery Room Air Room Air Room Air Intake and Output 11/22/17 11/22/17 11/23/17 15:00 23:00 07:00 Intake Total 354 ml Output Total 300 ml Balance 54 ml DELBERT STONER MD Nov 23, 2017 13:32
[2017-11-24] MEDS: fentaNYL PF VIAL 100 MCG/2 ML VIAL IV PRN ×5 (02:53→20:50)
[2017-11-24] MEDS: HYDROcodone/APAP 5/325MG 1 TAB TABLET PO PRN ×4 (02:53→18:19)
[2017-11-24 03:00] VITALS: BP 130/73
[2017-11-24 04:59] LABS: BASO % 1 % (0-3); EOS # 0.2 x10^3/uL (0.0-0.7); EOS % 3 % (0-3); HEMATOCRIT 39.3 % (39.0-53.0); HEMOGLOBIN 13.2 g/dL (13.0-17.5); LYMPH # 2.5 x10^3/uL (1.0-4.8); LYMPH % 42 % (24-48); MEAN CORPUSCULAR HEMOGLOBIN 29 pg (25-35); MEAN CORPUSCULAR HGB CONC 34 g/dL (31-37); MEAN CORPUSCULAR VOLUME 87 fL (79-100); MONO # 0.5 x10^3/uL (0.0-1.1); MONO % 9 % (0-9); NEUT # 2.7 x10^3uL (1.8-7.7); NEUT % 45 % (31-73); PLATELET COUNT 170 x10^3/uL (140-400); RED BLOOD COUNT 4.54 x10^6/uL (4.30-5.70); RED CELL DISTRIBUTION WIDTH 14.3 % (11.5-14.5); WHITE BLOOD COUNT 5.9 x10^3/uL (4.0-11.0)
[2017-11-24 05:10] LABS: CALCIUM 8.1 mg/dL (8.5-10.1); CREATININE 1.2 mg/dL (0.7-1.3); GFR 82.9; POTASSIUM 4.4 mmol/L (3.5-5.1)
[2017-11-24 07:00] VITALS: BP 139/78
--- NOTE | 2017-11-24 08:27 | RAD ---
AP chest. HISTORY: Pneumothorax AP view was taken of the chest. Left chest tube is unchanged. There is no pneumothorax. There is linear scarring or atelectasis in the left lung base. There are no new infiltrates. Heart is normal in size. IMPRESSION: 1. Left chest tube unchanged. 2. No pneumothorax. 3. No new infiltrates. Electronically signed by: Will Hammond MD (11/24/2017 8:24 AM) [facility]
[2017-11-24] MEDS: ENOXAPARIN 40 MG/0.4 ML SYRINGE. SQ SCH (09:13)
[2017-11-24 11:05] VITALS: BP 153/82
--- NOTE | 2017-11-24 11:55 | PDOC ---
PULMONARY PROGRESS NOTES Subjective no soa s/p 24 F chest tube 11/23 Vitals Vital Signs Date Time Temp Pulse Resp B/P (MAP) Pulse Ox O2 Delivery O2 Flow Rate FiO2 11/24/17 11:05 98.3 43 17 153/82 (105) 98 Room Air 98.3 General: Alert, No acute distress Lungs: Clear Cardiovascular: S1 Abdomen: Soft Neuro Exam: Alert Extremities: No Edema Skin: Warm Labs Laboratory Tests Test 11/22/17 14:50 11/23/17 05:05 11/24/17 03:00 White Blood Count 8.8 x10^3/uL (4.0-11.0) 9.2 x10^3/uL (4.0-11.0) 5.9 x10^3/uL (4.0-11.0) Red Blood Count 4.89 x10^6/uL (4.30-5.70) 4.81 x10^6/uL (4.30-5.70) 4.54 x10^6/uL (4.30-5.70) Hemoglobin 14.2 g/dL (13.0-17.5) 13.7 g/dL (13.0-17.5) 13.2 g/dL (13.0-17.5) Hematocrit 42.4 % (39.0-53.0) 41.5 % (39.0-53.0) 39.3 % (39.0-53.0) Mean Corpuscular Volume 87 fL (79-100) 86 fL (79-100) 87 fL (79-100) Mean Corpuscular Hemoglobin 29 pg (25-35) 29 pg (25-35) 29 pg (25-35) Mean Corpuscular Hemoglobin Concent 34 g/dL (31-37) 33 g/dL (31-37) 34 g/dL (31-37) Red Cell Distribution Width 14.6 % (11.5-14.5) 14.1 % (11.5-14.5) 14.3 % (11.5-14.5) Platelet Count 238 x10^3/uL (140-400) 191 x10^3/uL (140-400) 170 x10^3/uL (140-400) Neutrophils (%) (Auto) 36 % (31-73) 69 % (31-73) 45 % (31-73) Lymphocytes (%) (Auto) 53 % (24-48) 25 % (24-48) 42 % (24-48) Monocytes (%) (Auto) 7 % (0-9) 6 % (0-9) 9 % (0-9) Eosinophils (%) (Auto) 3 % (0-3) 1 % (0-3) 3 % (0-3) Basophils (%) (Auto) 1 % (0-3) 0 % (0-3) 1 % (0-3) Neutrophils # (Auto) 3.1 x10^3uL (1.8-7.7) 6.4 x10^3uL (1.8-7.7) 2.7 x10^3uL (1.8-7.7) Lymphocytes # (Auto) 4.7 x10^3/uL (1.0-4.8) 2.3 x10^3/uL (1.0-4.8) 2.5 x10^3/uL (1.0-4.8) Monocytes # (Auto) 0.6 x10^3/uL (0.0-1.1) 0.5 x10^3/uL (0.0-1.1) 0.5 x10^3/uL (0.0-1.1) Eosinophils # (Auto) 0.3 x10^3/uL (0.0-0.7) 0.0 x10^3/uL (0.0-0.7) 0.2 x10^3/uL (0.0-0.7) Basophils # (Auto) 0.1 x10^3/uL (0.0-0.2) 0.0 x10^3/uL (0.0-0.2) 0.0 x10^3/uL (0.0-0.2) D-Dimer (Brigette) < 0.27 ug/mlFEU Sodium Level 141 mmol/L (136-145) 140 mmol/L (136-145) 140 mmol/L (136-145) Potassium Level 3.7 mmol/L (3.5-5.1) 3.7 mmol/L (3.5-5.1) 4.4 mmol/L (3.5-5.1) Chloride Level 104 mmol/L (98-107) 105 mmol/L (98-107) 107 mmol/L (98-107) Carbon Dioxide Level 26 mmol/L (21-32) 24 mmol/L (21-32) 26 mmol/L (21-32) Anion Gap 11 (6-14) 11 (6-14) 7 (6-14) Blood Urea Nitrogen 17 mg/dL (8-26) 12 mg/dL (8-26) 13 mg/dL (8-26) Creatinine 1.6 mg/dL (0.7-1.3) 1.0 mg/dL (0.7-1.3) 1.2 mg/dL (0.7-1.3) Estimated GFR (Cockcroft-Gault) 59.5 102.3 82.9 Glucose Level 129 mg/dL (70-99) 91 mg/dL (70-99) 88 mg/dL (70-99) Calcium Level 9.1 mg/dL (8.5-10.1) 8.8 mg/dL (8.5-10.1) 8.1 mg/dL (8.5-10.1) Total Bilirubin 0.4 mg/dL (0.2-1.0) Direct Bilirubin 0.1 mg/dL (0.0-0.2) Aspartate Amino Transf (AST/SGOT) 17 U/L (15-37) Alanine Aminotransferase (ALT/SGPT) 22 U/L (16-63) Alkaline Phosphatase 48 U/L (46-116) Troponin I Quantitative < 0.017 ng/mL (0.000-0.055) Total Protein 7.6 g/dL (6.4-8.2) Albumin 3.9 g/dL (3.4-5.0) Lipase 135 U/L (73-393) Laboratory Tests Test 11/24/17 03:00 White Blood Count 5.9 x10^3/uL (4.0-11.0) Red Blood Count 4.54 x10^6/uL (4.30-5.70) Hemoglobin 13.2 g/dL (13.0-17.5) Hematocrit 39.3 % (39.0-53.0) Mean Corpuscular Volume 87 fL (79-100) Mean Corpuscular Hemoglobin 29 pg (25-35) Mean Corpuscular Hemoglobin Concent 34 g/dL (31-37) Red Cell Distribution Width 14.3 % (11.5-14.5) Platelet Count 170 x10^3/uL (140-400) Neutrophils (%) (Auto) 45 % (31-73) Lymphocytes (%) (Auto) 42 % (24-48) Monocytes (%) (Auto) 9 % (0-9) Eosinophils (%) (Auto) 3 % (0-3) Basophils (%) (Auto) 1 % (0-3) Neutrophils # (Auto) 2.7 x10^3uL (1.8-7.7) Lymphocytes # (Auto) 2.5 x10^3/uL (1.0-4.8) Monocytes # (Auto) 0.5 x10^3/uL (0.0-1.1) Eosinophils # (Auto) 0.2 x10^3/uL (0.0-0.7) Basophils # (Auto) 0.0 x10^3/uL (0.0-0.2) Sodium Level 140 mmol/L (136-145) Potassium Level 4.4 mmol/L (3.5-5.1) Chloride Level 107 mmol/L (98-107) Carbon Dioxide Level 26 mmol/L (21-32) Anion Gap 7 (6-14) Blood Urea Nitrogen 13 mg/dL (8-26) Creatinine 1.2 mg/dL (0.7-1.3) Estimated GFR (Cockcroft-Gault) 82.9 Glucose Level 88 mg/dL (70-99) Calcium Level 8.1 mg/dL (8.5-10.1) Medications Active Scripts Medications Dose Route/Sig Max Daily Dose Days Date Category No Known Medications Prior To Admisstion (Info) Each 1 Each 07/10/13 Reported Impression . 1. Spontaneous left-sided pneumothorax, probably triggered by inhaling marijuana. He probably may have some apical blebs as well. He is tall and skinny. His chest tube, which was small bore, placed in the ER, did result in initial reexpansion; however, his pneumothorax worsened . s/p 24 F chest tube 2. History of marijuana use and tobacco use. Plan . 1. s/p 24-[place] chest tube. Ptx resolved. will place to water seal. and if no PTX, remove chest tube in am 2. CT chest as OP to assess for apical blebs. 3. Smoking cessation counseling provided. 4. P.r.n. oxygen. 5. Pain control. 6. Discussed with RN. MIKE MIRANDA MD Nov 24, 2017 11:54
--- NOTE | 2017-11-24 13:44 | PDOC ---
PROGRESS NOTES Chief Complaint Chief Complaint sob, chest pain 2/2 left spontaneous pneumothorax s/p chest tube 11/23 bipolar disorder with depression smoker drug use with marijuana. plan: has chest tube placement 11/23. has a pigtail chest tube without suction done in ER 11/22. Chest tube place with suction 11/23, water seal today pulm consulted CXR tmr pain control dvt ppx remove chest tube tmr? History of Present Illness History of Present Illness ROS: no fever, chills worse CXR require big chest tube placement 11/23 Vitals Vitals Vital Signs Date Time Temp Pulse Resp B/P (MAP) Pulse Ox O2 Delivery O2 Flow Rate FiO2 11/24/17 13:39 18 98 Room Air 11/24/17 11:05 98.3 43 153/82 (105) 98.3 Physical Exam General: Alert, Oriented X3, Cooperative Heart: Regular rate, Normal S1, Normal S2 Lungs: Clear Abdomen: Normal bowel sounds, Soft Extremities: No clubbing, No cyanosis Skin: No rashes Labs LABS Laboratory Tests Test 11/24/17 03:00 White Blood Count 5.9 x10^3/uL (4.0-11.0) Red Blood Count 4.54 x10^6/uL (4.30-5.70) Hemoglobin 13.2 g/dL (13.0-17.5) Hematocrit 39.3 % (39.0-53.0) Mean Corpuscular Volume 87 fL (79-100) Mean Corpuscular Hemoglobin 29 pg (25-35) Mean Corpuscular Hemoglobin Concent 34 g/dL (31-37) Red Cell Distribution Width 14.3 % (11.5-14.5) Platelet Count 170 x10^3/uL (140-400) Neutrophils (%) (Auto) 45 % (31-73) Lymphocytes (%) (Auto) 42 % (24-48) Monocytes (%) (Auto) 9 % (0-9) Eosinophils (%) (Auto) 3 % (0-3) Basophils (%) (Auto) 1 % (0-3) Neutrophils # (Auto) 2.7 x10^3uL (1.8-7.7) Lymphocytes # (Auto) 2.5 x10^3/uL (1.0-4.8) Monocytes # (Auto) 0.5 x10^3/uL (0.0-1.1) Eosinophils # (Auto) 0.2 x10^3/uL (0.0-0.7) Basophils # (Auto) 0.0 x10^3/uL (0.0-0.2) Sodium Level 140 mmol/L (136-145) Potassium Level 4.4 mmol/L (3.5-5.1) Chloride Level 107 mmol/L (98-107) Carbon Dioxide Level 26 mmol/L (21-32) Anion Gap 7 (6-14) Blood Urea Nitrogen 13 mg/dL (8-26) Creatinine 1.2 mg/dL (0.7-1.3) Estimated GFR (Cockcroft-Gault) 82.9 Glucose Level 88 mg/dL (70-99) Calcium Level 8.1 mg/dL (8.5-10.1) Assessment and Plan Assessmemt and Plan Problems Medical Problems: (1) Chest pain Status: Acute (2) Pneumothorax Status: Acute (3) Pneumothorax on left Status: Acute Comment Review of Relevant I have reviewed the following items geetha (where applicable) has been applied. Labs Laboratory Tests Test 11/22/17 14:50 11/23/17 05:05 11/24/17 03:00 White Blood Count 8.8 x10^3/uL (4.0-11.0) 9.2 x10^3/uL (4.0-11.0) 5.9 x10^3/uL (4.0-11.0) Red Blood Count 4.89 x10^6/uL (4.30-5.70) 4.81 x10^6/uL (4.30-5.70) 4.54 x10^6/uL (4.30-5.70) Hemoglobin 14.2 g/dL (13.0-17.5) 13.7 g/dL (13.0-17.5) 13.2 g/dL (13.0-17.5) Hematocrit 42.4 % (39.0-53.0) 41.5 % (39.0-53.0) 39.3 % (39.0-53.0) Mean Corpuscular Volume 87 fL (79-100) 86 fL (79-100) 87 fL (79-100) Mean Corpuscular Hemoglobin 29 pg (25-35) 29 pg (25-35) 29 pg (25-35) Mean Corpuscular Hemoglobin Concent 34 g/dL (31-37) 33 g/dL (31-37) 34 g/dL (31-37) Red Cell Distribution Width 14.6 % (11.5-14.5) 14.1 % (11.5-14.5) 14.3 % (11.5-14.5) Platelet Count 238 x10^3/uL (140-400) 191 x10^3/uL (140-400) 170 x10^3/uL (140-400) Neutrophils (%) (Auto) 36 % (31-73) 69 % (31-73) 45 % (31-73) Lymphocytes (%) (Auto) 53 % (24-48) 25 % (24-48) 42 % (24-48) Monocytes (%) (Auto) 7 % (0-9) 6 % (0-9) 9 % (0-9) Eosinophils (%) (Auto) 3 % (0-3) 1 % (0-3) 3 % (0-3) Basophils (%) (Auto) 1 % (0-3) 0 % (0-3) 1 % (0-3) Neutrophils # (Auto) 3.1 x10^3uL (1.8-7.7) 6.4 x10^3uL (1.8-7.7) 2.7 x10^3uL (1.8-7.7) Lymphocytes # (Auto) 4.7 x10^3/uL (1.0-4.8) 2.3 x10^3/uL (1.0-4.8) 2.5 x10^3/uL (1.0-4.8) Monocytes # (Auto) 0.6 x10^3/uL (0.0-1.1) 0.5 x10^3/uL (0.0-1.1) 0.5 x10^3/uL (0.0-1.1) Eosinophils # (Auto) 0.3 x10^3/uL (0.0-0.7) 0.0 x10^3/uL (0.0-0.7) 0.2 x10^3/uL (0.0-0.7) Basophils # (Auto) 0.1 x10^3/uL (0.0-0.2) 0.0 x10^3/uL (0.0-0.2) 0.0 x10^3/uL (0.0-0.2) D-Dimer (Brigette) < 0.27 ug/mlFEU Sodium Level 141 mmol/L (136-145) 140 mmol/L (136-145) 140 mmol/L (136-145) Potassium Level 3.7 mmol/L (3.5-5.1) 3.7 mmol/L (3.5-5.1) 4.4 mmol/L (3.5-5.1) Chloride Level 104 mmol/L (98-107) 105 mmol/L (98-107) 107 mmol/L (98-107) Carbon Dioxide Level 26 mmol/L (21-32) 24 mmol/L (21-32) 26 mmol/L (21-32) Anion Gap 11 (6-14) 11 (6-14) 7 (6-14) Blood Urea Nitrogen 17 mg/dL (8-26) 12 mg/dL (8-26) 13 mg/dL (8-26) Creatinine 1.6 mg/dL (0.7-1.3) 1.0 mg/dL (0.7-1.3) 1.2 mg/dL (0.7-1.3) Estimated GFR (Cockcroft-Gault) 59.5 102.3 82.9 Glucose Level 129 mg/dL (70-99) 91 mg/dL (70-99) 88 mg/dL (70-99) Calcium Level 9.1 mg/dL (8.5-10.1) 8.8 mg/dL (8.5-10.1) 8.1 mg/dL (8.5-10.1) Total Bilirubin 0.4 mg/dL (0.2-1.0) Direct Bilirubin 0.1 mg/dL (0.0-0.2) Aspartate Amino Transf (AST/SGOT) 17 U/L (15-37) Alanine Aminotransferase (ALT/SGPT) 22 U/L (16-63) Alkaline Phosphatase 48 U/L (46-116) Troponin I Quantitative < 0.017 ng/mL (0.000-0.055) Total Protein 7.6 g/dL (6.4-8.2) Albumin 3.9 g/dL (3.4-5.0) Lipase 135 U/L (73-393) Laboratory Tests Test 11/24/17 03:00 White Blood Count 5.9 x10^3/uL (4.0-11.0) Red Blood Count 4.54 x10^6/uL (4.30-5.70) Hemoglobin 13.2 g/dL (13.0-17.5) Hematocrit 39.3 % (39.0-53.0) Mean Corpuscular Volume 87 fL (79-100) Mean Corpuscular Hemoglobin 29 pg (25-35) Mean Corpuscular Hemoglobin Concent 34 g/dL (31-37) Red Cell Distribution Width 14.3 % (11.5-14.5) Platelet Count 170 x10^3/uL (140-400) Neutrophils (%) (Auto) 45 % (31-73) Lymphocytes (%) (Auto) 42 % (24-48) Monocytes (%) (Auto) 9 % (0-9) Eosinophils (%) (Auto) 3 % (0-3) Basophils (%) (Auto) 1 % (0-3) Neutrophils # (Auto) 2.7 x10^3uL (1.8-7.7) Lymphocytes # (Auto) 2.5 x10^3/uL (1.0-4.8) Monocytes # (Auto) 0.5 x10^3/uL (0.0-1.1) Eosinophils # (Auto) 0.2 x10^3/uL (0.0-0.7) Basophils # (Auto) 0.0 x10^3/uL (0.0-0.2) Sodium Level 140 mmol/L (136-145) Potassium Level 4.4 mmol/L (3.5-5.1) Chloride Level 107 mmol/L (98-107) Carbon Dioxide Level 26 mmol/L (21-32) Anion Gap 7 (6-14) Blood Urea Nitrogen 13 mg/dL (8-26) Creatinine 1.2 mg/dL (0.7-1.3) Estimated GFR (Cockcroft-Gault) 82.9 Glucose Level 88 mg/dL (70-99) Calcium Level 8.1 mg/dL (8.5-10.1) Medications Current Medications Multi-Ingredient Mouthwash/Gargle (Gi Cocktail) 20 ml 1X ONCE PO Last administered on 11/22/17at 15:30; Start 11/22/17 at 15:15; Stop 11/22/17 at 15:16 ; Status DC Fentanyl Citrate (Fentanyl 2ml Vial) 100 mcg STK-MED ONCE .ROUTE ; Start at 16:21; Stop 11/22/17 at 16:22; Status DC Fentanyl Citrate (Fentanyl 2ml Vial) 50 mcg 1X ONCE IV Last administered on at 16:27; Start 11/22/17 at 16:30; Stop 11/22/17 at 16:31; Status DC Ondansetron HCl (Zofran) 4 mg PRN Q8HRS PRN IV NAUSEA/VOMITING; Start 11/22/17 at 16:45; Stop 11/22/17 at 17:58; Status DC Morphine Sulfate (Morphine Sulfate) 2 mg PRN Q2HR PRN IV PAIN; Start 11/22/17 at 16:45; Stop 11/22/17 at 17:58; Status DC Sodium Chloride 1,000 ml @ 100 mls/hr Q10H IV Last administered on 11/23/17at 12:34; Start 11/22/17 at 16:41; Stop 11/23/17 at 16:40; Status DC Fentanyl Citrate (Fentanyl 2ml Vial) 50 mcg PRN Q30MIN PRN IV SEVERE PAIN Last administered on 11/23/17at 10:37; Start 11/22/17 at 16:45; Stop 11/23/17 at 10:37 ; Status DC Acetaminophen (Tylenol) 650 mg PRN Q6HRS PRN PO FEVER; Start 11/22/17 at 18:00 Ondansetron HCl (Zofran) 4 mg PRN Q6HRS PRN IV NAUSEA/VOMITING; Start 11/22/17 at 18:00 Morphine Sulfate (Morphine Sulfate) 2 mg PRN Q2HR PRN IV MODERATE TO SEVERE PAIN Last administered on 11/23/17at 10:15; Start 11/22/17 at 18:00 Tramadol HCl (Ultram) 50 mg PRN Q6HRS PRN PO MILD TO MODERATE PAIN; Start 11/22 at 18:00 Docusate Sodium (Colace) 100 mg PRN DAILY PRN PO CONSTIPATION; Start 11/22/17 at 18:00 Acetaminophen/ Hydrocodone Bitart (Lortab 5/325) 1 tab PRN Q4HRS PRN PO SEVERE PAIN Last administered on 11/24/17at 13:39; Start 11/22/17 at 18:00 Enoxaparin Sodium (Lovenox 40mg Syringe) 40 mg DAILY SQ Last administered on at 09:13; Start 11/23/17 at 09:00 Lidocaine HCl (Xylocaine 1% Pf 30ml Vial) 10 ml 1X ONCE INJ ; Start 11/23/17 at 09:15; Stop 11/23/17 at 09:16; Status DC Morphine Sulfate (Morphine Sulfate) 2 mg 1X ONCE IV Last administered on at 10:15; Start 11/23/17 at 09:30; Stop 11/23/17 at 09:31; Status DC Ketorolac Tromethamine (Toradol 15mg Vial) 15 mg PRN Q6HRS PRN IV MODERATE PAIN Last administered on 11/23/17at 11:12; Start 11/23/17 at 11:00; Stop at 10:59 Fentanyl Citrate (Fentanyl 2ml Vial) 25 mcg PRN Q2HR PRN IV MODERATE TO SEVERE PAIN Last administered on 11/24/17at 13:39; Start 11/23/17 at 12:30 Active Scripts Active Reported No Known Medications Prior To Admisstion (Info) Each 1 Each Vitals/I & O Vital Sign - Last 24 Hours 11/23/17 11/23/17 11/23/17 11/23/17 15:25 16:42 16:42 19:00 Temp 98.4 98.2 98.4 98.2 Pulse 44 43 Resp 18 18 18 16 B/P (MAP) 118/68 (85) 119/76 (90) Pulse Ox 96 96 96 98 O2 Delivery Room Air Room Air Room Air Room Air 11/23/17 11/23/17 11/23/17 11/23/17 20:30 21:11 21:11 22:46 Temp 98.3 98.3 Pulse 52 Resp 18 18 16 B/P (MAP) 133/81 (98) Pulse Ox 98 98 96 O2 Delivery Room Air Room Air Room Air Room Air 11/24/17 11/24/17 11/24/17 11/24/17 02:53 02:53 03:00 07:00 Temp 98.3 98.5 98.3 98.5 Pulse 43 49 Resp 18 18 18 17 B/P (MAP) 130/73 (92) 139/78 (98) Pulse Ox 96 96 99 98 O2 Delivery Room Air Room Air Room Air Room Air 11/24/17 11/24/17 11/24/17 11/24/17 08:00 09:05 09:07 09:37 Resp 18 18 17 Pulse Ox 98 98 98 O2 Delivery Room Air Room Air Room Air Room Air 11/24/17 11/24/17 11/24/17 11/24/17 10:05 11:05 13:39 13:39 Temp 98.3 98.3 Pulse 43 Resp 18 17 16 18 B/P (MAP) 153/82 (105) Pulse Ox 98 98 98 98 O2 Delivery Room Air Room Air Room Air Room Air Intake and Output 11/23/17 11/23/17 11/24/17 15:00 23:00 07:00 Intake Total 120 ml 600 ml Output Total 0 ml 0 ml 670 ml Balance 120 ml 600 ml -670 ml DELBERT STONER MD Nov 24, 2017 13:44
[2017-11-24 15:00] VITALS: BP 122/73
[2017-11-24] MEDS: KETOROLAC 15 MG/ML VIAL. IV PRN (18:19)
[2017-11-24 19:00] VITALS: BP 148/81
[2017-11-24 23:00] VITALS: BP 128/68
[2017-11-25] MEDS: HYDROcodone/APAP 5/325MG 1 TAB TABLET PO PRN ×3 (01:55→14:58)
[2017-11-25] MEDS: fentaNYL PF VIAL 100 MCG/2 ML VIAL IV PRN (01:55)
[2017-11-25 02:32] VITALS: BP 124/72
[2017-11-25] MEDS: KETOROLAC 15 MG/ML VIAL. IV PRN (06:08)
[2017-11-25 07:39] VITALS: BP 147/84
--- NOTE | 2017-11-25 08:05 | RAD ---
Portable chest, 11/25/2017: HISTORY: Follow-up pneumothorax Comparison is made to yesterday's study. The left chest tube is unchanged in position. A tiny left apical pneumothorax is now evident. The heart size and pulmonary vascularity are normal. Blunting of the right lateral costophrenic angle has developed suggesting a small amount of pleural fluid. IMPRESSION: 1. Tiny recurrent left apical pneumothorax. 2. A small right pleural effusion has developed. Electronically signed by: Remy Adams MD (11/25/2017 8:02 AM) [facility]
[2017-11-25] MEDS: ENOXAPARIN 40 MG/0.4 ML SYRINGE. SQ SCH (08:26)
--- NOTE | 2017-11-25 09:18 | PDOC ---
PULMONARY PROGRESS NOTES Subjective no soa s/p 24 F chest tube 11/23 Vitals Vital Signs Date Time Temp Pulse Resp B/P (MAP) Pulse Ox O2 Delivery O2 Flow Rate FiO2 11/25/17 07:39 98.5 53 20 147/84 (105) 95 Room Air 98.5 General: Alert, No acute distress Lungs: Clear Cardiovascular: S1 Abdomen: Soft Neuro Exam: Alert Extremities: No Edema Skin: Warm Labs Laboratory Tests Test 11/24/17 03:00 White Blood Count 5.9 x10^3/uL (4.0-11.0) Red Blood Count 4.54 x10^6/uL (4.30-5.70) Hemoglobin 13.2 g/dL (13.0-17.5) Hematocrit 39.3 % (39.0-53.0) Mean Corpuscular Volume 87 fL (79-100) Mean Corpuscular Hemoglobin 29 pg (25-35) Mean Corpuscular Hemoglobin Concent 34 g/dL (31-37) Red Cell Distribution Width 14.3 % (11.5-14.5) Platelet Count 170 x10^3/uL (140-400) Neutrophils (%) (Auto) 45 % (31-73) Lymphocytes (%) (Auto) 42 % (24-48) Monocytes (%) (Auto) 9 % (0-9) Eosinophils (%) (Auto) 3 % (0-3) Basophils (%) (Auto) 1 % (0-3) Neutrophils # (Auto) 2.7 x10^3uL (1.8-7.7) Lymphocytes # (Auto) 2.5 x10^3/uL (1.0-4.8) Monocytes # (Auto) 0.5 x10^3/uL (0.0-1.1) Eosinophils # (Auto) 0.2 x10^3/uL (0.0-0.7) Basophils # (Auto) 0.0 x10^3/uL (0.0-0.2) Sodium Level 140 mmol/L (136-145) Potassium Level 4.4 mmol/L (3.5-5.1) Chloride Level 107 mmol/L (98-107) Carbon Dioxide Level 26 mmol/L (21-32) Anion Gap 7 (6-14) Blood Urea Nitrogen 13 mg/dL (8-26) Creatinine 1.2 mg/dL (0.7-1.3) Estimated GFR (Cockcroft-Gault) 82.9 Glucose Level 88 mg/dL (70-99) Calcium Level 8.1 mg/dL (8.5-10.1) Medications Active Scripts Medications Dose Route/Sig Max Daily Dose Days Date Category No Known Medications Prior To Admisstion (Info) Each 1 Each 07/10/13 Reported Impression . 1. Spontaneous left-sided pneumothorax, probably triggered by inhaling marijuana. He probably may have some apical blebs as well. He is tall and skinny. His chest tube, which was small bore, placed in the ER, did result in initial reexpansion; however, his pneumothorax worsened . s/p 24 F chest tube 2. History of marijuana use and tobacco use. Plan . CHEST TUBE CLAMP NO PTX ON REPEAT CXR REMOVED TUBE PT OK TO D/C PT INSTRUCTED TO COME TO ER WITH ANY NEW ONSET OF ACUTE CHEST PAIN AND OR SOKALINA PADILLA MD Nov 25, 2017 09:18
[2017-11-25 11:01] VITALS: BP 148/84
--- NOTE | 2017-11-25 11:14 | PDOC ---
PROGRESS NOTES Chief Complaint Chief Complaint left Spontaneous Pneumothorax bipolar disorder with depression smoker drug use with marijuana. plan: has chest tube placement 11/23. has a pigtail chest tube without suction done in ER 11/22. Chest tube place with suction 11/23, water seal today pulm consulted CXR tmr pain control dvt ppx remove chest tube tmr? History of Present Illness History of Present Illness Pt seen and examined Dw RN Pt reports improvements Vitals Vitals Vital Signs Date Time Temp Pulse Resp B/P (MAP) Pulse Ox O2 Delivery O2 Flow Rate FiO2 11/25/17 11:01 98.4 56 18 148/84 (105) 96 Room Air 98.4 Physical Exam General: Alert, Oriented X3, Cooperative, No acute distress Heart: Regular rate, Normal S2, No murmurs Lungs: Clear Abdomen: Normal bowel sounds, Soft Extremities: No clubbing, No cyanosis Skin: No rashes Review of Systems Review of Systems CO fatigue CO hunger Assessment and Plan Assessmemt and Plan Problems Medical Problems: (1) Chest pain Status: Acute (2) Pneumothorax Status: Acute (3) Pneumothorax on left Status: Acute Plan Continue Chest tube place with suction await pulm input remove chest tube tmr? pain control dvt ppx smoking cessation education Comment Review of Relevant I have reviewed the following items geetha (where applicable) has been applied. Labs Laboratory Tests Test 11/24/17 03:00 White Blood Count 5.9 x10^3/uL (4.0-11.0) Red Blood Count 4.54 x10^6/uL (4.30-5.70) Hemoglobin 13.2 g/dL (13.0-17.5) Hematocrit 39.3 % (39.0-53.0) Mean Corpuscular Volume 87 fL (79-100) Mean Corpuscular Hemoglobin 29 pg (25-35) Mean Corpuscular Hemoglobin Concent 34 g/dL (31-37) Red Cell Distribution Width 14.3 % (11.5-14.5) Platelet Count 170 x10^3/uL (140-400) Neutrophils (%) (Auto) 45 % (31-73) Lymphocytes (%) (Auto) 42 % (24-48) Monocytes (%) (Auto) 9 % (0-9) Eosinophils (%) (Auto) 3 % (0-3) Basophils (%) (Auto) 1 % (0-3) Neutrophils # (Auto) 2.7 x10^3uL (1.8-7.7) Lymphocytes # (Auto) 2.5 x10^3/uL (1.0-4.8) Monocytes # (Auto) 0.5 x10^3/uL (0.0-1.1) Eosinophils # (Auto) 0.2 x10^3/uL (0.0-0.7) Basophils # (Auto) 0.0 x10^3/uL (0.0-0.2) Sodium Level 140 mmol/L (136-145) Potassium Level 4.4 mmol/L (3.5-5.1) Chloride Level 107 mmol/L (98-107) Carbon Dioxide Level 26 mmol/L (21-32) Anion Gap 7 (6-14) Blood Urea Nitrogen 13 mg/dL (8-26) Creatinine 1.2 mg/dL (0.7-1.3) Estimated GFR (Cockcroft-Gault) 82.9 Glucose Level 88 mg/dL (70-99) Calcium Level 8.1 mg/dL (8.5-10.1) Medications Current Medications Multi-Ingredient Mouthwash/Gargle (Gi Cocktail) 20 ml 1X ONCE PO Last administered on 11/22/17at 15:30; Start 11/22/17 at 15:15; Stop 11/22/17 at 15:16 ; Status DC Fentanyl Citrate (Fentanyl 2ml Vial) 100 mcg STK-MED ONCE .ROUTE ; Start at 16:21; Stop 11/22/17 at 16:22; Status DC Fentanyl Citrate (Fentanyl 2ml Vial) 50 mcg 1X ONCE IV Last administered on at 16:27; Start 11/22/17 at 16:30; Stop 11/22/17 at 16:31; Status DC Ondansetron HCl (Zofran) 4 mg PRN Q8HRS PRN IV NAUSEA/VOMITING; Start 11/22/17 at 16:45; Stop 11/22/17 at 17:58; Status DC Morphine Sulfate (Morphine Sulfate) 2 mg PRN Q2HR PRN IV PAIN; Start 11/22/17 at 16:45; Stop 11/22/17 at 17:58; Status DC Sodium Chloride 1,000 ml @ 100 mls/hr Q10H IV Last administered on 11/23/17at 12:34; Start 11/22/17 at 16:41; Stop 11/23/17 at 16:40; Status DC Fentanyl Citrate (Fentanyl 2ml Vial) 50 mcg PRN Q30MIN PRN IV SEVERE PAIN Last administered on 11/23/17at 10:37; Start 11/22/17 at 16:45; Stop 11/23/17 at 10:37 ; Status DC Acetaminophen (Tylenol) 650 mg PRN Q6HRS PRN PO FEVER; Start 11/22/17 at 18:00 Ondansetron HCl (Zofran) 4 mg PRN Q6HRS PRN IV NAUSEA/VOMITING; Start 11/22/17 at 18:00 Morphine Sulfate (Morphine Sulfate) 2 mg PRN Q2HR PRN IV MODERATE TO SEVERE PAIN Last administered on 11/23/17at 10:15; Start 11/22/17 at 18:00 Tramadol HCl (Ultram) 50 mg PRN Q6HRS PRN PO MILD TO MODERATE PAIN; Start 11/22 at 18:00 Docusate Sodium (Colace) 100 mg PRN DAILY PRN PO CONSTIPATION; Start 11/22/17 at 18:00 Acetaminophen/ Hydrocodone Bitart (Lortab 5/325) 1 tab PRN Q4HRS PRN PO SEVERE PAIN Last administered on 11/25/17at 06:07; Start 11/22/17 at 18:00 Enoxaparin Sodium (Lovenox 40mg Syringe) 40 mg DAILY SQ Last administered on at 08:26; Start 11/23/17 at 09:00 Lidocaine HCl (Xylocaine 1% Pf 30ml Vial) 10 ml 1X ONCE INJ ; Start 11/23/17 at 09:15; Stop 11/23/17 at 09:16; Status DC Morphine Sulfate (Morphine Sulfate) 2 mg 1X ONCE IV Last administered on at 10:15; Start 11/23/17 at 09:30; Stop 11/23/17 at 09:31; Status DC Ketorolac Tromethamine (Toradol 15mg Vial) 15 mg PRN Q6HRS PRN IV MODERATE PAIN Last administered on 11/25/17at 06:08; Start 11/23/17 at 11:00; Stop at 10:59 Fentanyl Citrate (Fentanyl 2ml Vial) 25 mcg PRN Q2HR PRN IV MODERATE TO SEVERE PAIN Last administered on 11/25/17at 01:55; Start 11/23/17 at 12:30 Active Scripts Active Reported No Known Medications Prior To Admisstion (Info) Each 1 Each Vitals/I & O Vital Sign - Last 24 Hours 11/24/17 11/24/17 11/24/17 11/24/17 13:39 13:39 15:00 18:19 Temp 98.3 98.3 Pulse 51 Resp 16 18 18 17 B/P (MAP) 122/73 (89) Pulse Ox 98 98 99 99 O2 Delivery Room Air Room Air Room Air Room Air 11/24/17 11/24/17 11/24/17 11/24/17 18:20 19:00 19:30 20:50 Temp 98.3 98.3 Pulse 44 Resp 17 16 20 B/P (MAP) 148/81 (103) Pulse Ox 99 100 O2 Delivery Room Air Room Air Room Air Room Air 11/24/17 11/24/17 11/25/17 11/25/17 21:20 23:00 01:55 01:55 Temp 98.4 98.4 Pulse 50 Resp 18 20 20 B/P (MAP) 128/68 (88) Pulse Ox 98 98 O2 Delivery Room Air Room Air 11/25/17 11/25/17 11/25/17 11/25/17 02:25 02:32 06:07 07:05 Temp 98.3 98.3 Pulse 63 Resp 20 20 20 18 B/P (MAP) 124/72 (89) Pulse Ox 98 98 95 O2 Delivery Room Air Room Air Room Air Room Air 11/25/17 11/25/17 11/25/17 07:35 07:39 11:01 Temp 98.5 98.4 98.5 98.4 Pulse 53 56 Resp 20 18 B/P (MAP) 147/84 (105) 148/84 (105) Pulse Ox 95 96 O2 Delivery Room Air Room Air Room Air Intake and Output 11/24/17 11/24/17 11/25/17 15:00 23:00 07:00 Intake Total 240 ml 240 ml 600 ml Output Total 0 ml 900 ml 1000 ml Balance 240 ml -660 ml -400 ml CASTLE,NIAL K III DO Nov 25, 2017 11:14
[2017-11-25 15:12] VITALS: BP 132/73
--- NOTE | 2017-11-25 16:03 | RAD ---
Portable chest, 11/25/2017, 3:22 PM: HISTORY: Pneumothorax Comparison is made to the study of earlier the same day. The left chest tube is unchanged in position. There is a tiny residual left apical pneumothorax similar to that seen earlier in the day. A small amount of right-sided pleural fluid persists and is unchanged. No pulmonary infiltrate is seen. No new abnormality is detected. IMPRESSION: No significant change since earlier in the day. Electronically signed by: Remy Adams MD (11/25/2017 4:00 PM) [facility]
== END 2017-11-25 17:55 | disposition home or self-care (01) | DRG 201 ==
LOC: ER 14:36 → 4 NORTH 16:40 → 2 SOUTH 11-23 10:00
PROVIDERS: ADMIT Internal Medicine; ATTEND Internal Medicine
PROC: 0W9B30Z Drainage of Left Pleural Cavity with Drainage Device, Percutaneous Approach (ICD-10-PCS; principal; 2017-11-22)
DX: J93.83 Other pneumothorax (principal); F31.9 Bipolar disorder, unspecified; F12.90 Cannabis use, unspecified, uncomplicated; F41.9 Anxiety disorder, unspecified; F17.210 Nicotine dependence, cigarettes, uncomplicated; Z71.6 Tobacco abuse counseling; Z82.49 Family history of ischemic heart disease and other diseases of the circulatory system
CPT/HCPCS: 10060; 36415; 71045; 80048; 80076; 83690; 84484; 85025; 85379; 93005; 99291; J1650; J1885; J2270; J3010; J7030

== ENCOUNTER 2017-12-04 11:01 | Emergency (ER) | payer SELFPAY ==
[~2017-12-04] VITALS: Ht 190.5 cm; Wt 68.0 kg
[2017-12-04 11:12] VITALS: BP 118/62
--- NOTE | 2017-12-04 11:31 | PHYS DOC ---
Past Medical History Past Medical History: Bipolar, Depression Past Surgical History: Other Additional Past Surgical Histo: I&D scrutum/rectum, hemhorridectomy Alcohol Use: Occasionally Drug Use: Cocaine, Marijuana, Other Adult General Chief Complaint Chief Complaint: SUTURE/STAPLE REMOVAL HPI HPI Patient is a 37 year old AA male who presents to the ER with need for wound recheck and suture removal. PT states he had a chest tube inserted last week for a collapsed lung. He was discharged after the chest tube was removed. This morning he noticed a suture in the area of the chest tube. He denies any drainage, warmth, or erythema of the area. Review of Systems Review of Systems Constitutional: Denies fever or chills [] Respiratory: Denies cough or shortness of breath [] Integument: Denies rash, reports suture to left lateral chest wall after chest tube removed last week Neurologic: Denies headache, focal weakness or sensory changes [] All other systems were reviewed and found to be within normal limits, except as documented in this note. Allergies Allergies Allergies Coded Allergies Type Severity Reaction Last Updated Verified No Known Drug Allergies 07/10/13 No Physical Exam Physical Exam Constitutional: Well developed, well nourished, no acute distress, non-toxic appearance. [] HENT: Normocephalic, atraumatic, bilateral external ears normal, ose normal. [] Eyes: conjunctiva normal, no discharge. [] Lungs & Thorax: Bilateral breath sounds clear to auscultation [] Skin: Warm, dry, no erythema, no rash; there is a small 0.5 cm piece of suture stuck to outer surface of skin, no visible suture in place Neurologic: Alert and oriented X 3, normal motor function, normal sensory function, no focal deficits noted. [] Psychologic: Affect normal, judgement normal, mood normal. [] Current Patient Data Vital Signs Vital Signs Date Time Temp Pulse Resp B/P (MAP) Pulse Ox O2 Delivery O2 Flow Rate FiO2 12/04/17 11:12 98.4 62 16 118/62 (80) 100 Room Air 98.4 EKG EKG [] Radiology/Procedures Radiology/Procedures [] Course & Med Decision Making Course & Med Decision Making Pertinent Labs and Imaging studies reviewed. (See chart for details) Dx: feared condition ruled out Patient presented for removal of a suture. On exam there was no suture intact however, was a small piece of suture stuck to the skin surface that was removed with gloves. Patient verbalized an understanding of home care, follow-up, and return to ED instructions and was in agreement with the plan of care. [] Staff Physician Addendum: I was working in the ER during the course of this patient's visit. I was available for consultation as needed, but I was not directly involved in the care of this patient. Dragon Disclaimer Dragon Disclaimer This electronic medical record was generated, in whole or in part, using a voice recognition dictation system. Departure Departure Impression: Primary Impression: Feared complaint without diagnosis Disposition: 01 HOME, SELF-CARE Condition: STABLE Referrals: NON,STAFF (PCP) Patient Instructions: Wound Check Additional Instructions: Follow up with your doctor as previously instructed. Return to the ER as needed. HEMAL BARCENAS APRN Dec 04, 2017 11:31 TIFF LAL MD Dec 04, 2017 12:46
== END 2017-12-04 11:41 | disposition home or self-care (01) ==
LOC: ER 11:01
DX: Z71.1 Person with feared health complaint in whom no diagnosis is made (principal); F31.9 Bipolar disorder, unspecified
CPT/HCPCS: 99282

== ENCOUNTER 2020-07-05 19:48 | Emergency (ER) | payer SELFPAY ==
[~2020-07-05] VITALS: Ht 190.5 cm; Wt 72.0 kg
[2020-07-05 20:29] LABS: BILIRUBIN,URINE NEGATIVE (NEG); CLARITY,URINE CLEAR; COLOR,URINE YELLOW; NITRITE,URINE NEGATIVE (NEG); PH,URINE 5.5 (<5.0-8.0); PROTEIN,URINE NEGATIVE (NEG-TRACE); UROBILINOGEN,URINE 0.2 mg/dL (0.2 mg/dL)
[2020-07-05 20:40] LABS: BACTERIA,URINE 0 /HPF (0-FEW); RBC,URINE 0 /HPF (0-2); WBC,URINE RARE /HPF (0-4)
[2020-07-05] MEDS ORDERED: DOXY100C2 PO (20:58)
--- NOTE | 2020-07-05 20:59 | PHYS DOC ---
Past Medical History Past Medical History: Bipolar, Depression Past Surgical History: Other Additional Past Surgical Histo: I&D scrutum/rectum, hemhorridectomy Smoking Status: Current Every Day Smoker Alcohol Use: Occasionally Drug Use: Cocaine, Marijuana, Other General Adult EDM: Chief Complaint: SEXUALLY TRANSMITTED DISEASE HPI: HPI: Patient is a 39 year old MALE presented to ER, wanted to be treated for STD, He claimed that he had sexual intercourse with someone recently, had penile discharge and itching. NO fever, no abdominal pain, no rash. Review of Systems: Review of Systems: Constitutional: Denies fever or chills. [] Eyes: Denies change in visual acuity. [] HENT: Denies nasal congestion or sore throat. [] Respiratory: Denies cough or shortness of breath. [] Cardiovascular: Denies chest pain or edema. [] GI: Denies abdominal pain, nausea, vomiting, bloody stools or diarrhea. [] : Denies dysuria. Positive for penile discharge, Musculoskeletal: Denies back pain or joint pain. [] Integument: Denies rash. [] Neurologic: Denies headache, focal weakness or sensory changes. [] Endocrine: Denies polyuria or polydipsia. [] Lymphatic: Denies swollen glands. [] Psychiatric: Denies depression or anxiety. [] Heart Score: C/O Chest Pain: N/A Risk Factors: Risk Factors: DM, Current or recent (<one month) smoker, HTN, HLP, family history of CAD, obesity. Risk Scores: Score 0 - 3: 2.5% MACE over next 6 weeks - Discharge Home Score 4 - 6: 20.3% MACE over next 6 weeks - Admit for Clinical Observation Score 7 - 10: 72.7% MACE over next 6 weeks - Early Invasive Strategies Current Medications: Current Medications Medications (Trade) Dose Ordered Sig/Heriberto Start Time Stop Time Status Last Admin Dose Admin Azithromycin (Zithromax) 1,000 mg 1X ONCE 07/05/20 21:00 07/05/20 21:01 Ceftriaxone Sodium (Rocephin Im) 500 mg 1X ONCE 07/05/20 21:00 07/05/20 21:01 Allergies: Allergies: Allergies Coded Allergies Type Severity Reaction Last Updated Verified No Known Drug Allergies 07/10/13 No Physical Exam: PE: Constitutional: Well developed, well nourished, no acute distress, non-toxic appearance. [] HENT: Normocephalic, atraumatic, bilateral external ears normal, oropharynx moist, no oral exudates, nose normal. [] Eyes: PERRLA, EOMI, conjunctiva normal, no discharge. [] Neck: Normal range of motion, no tenderness, supple, no stridor. [] Abdomen: Bowel sounds normal, soft, no tenderness, no masses, no pulsatile masses. [] Skin: Warm, dry, no erythema, no rash. [] Back: No tenderness, no CVA tenderness. [] Neurologic: Alert and oriented X 3, normal motor function, normal sensory function, no focal deficits noted. [] Psychologic: Affect normal, judgement normal, mood normal. [] Current Patient Data: Labs: Laboratory Tests Test 07/05/20 19:50 Urine Collection Type Unknown Urine Color Yellow Urine Clarity Clear Urine pH 5.5 (<5.0-8.0) Urine Specific [place] <=1.005 (1.000-1.030) Urine Protein Negative mg/dL (NEG-TRACE) Urine Glucose (UA) Negative mg/dL (NEG) Urine Ketones (Stick) Negative mg/dL (NEG) Urine Blood Negative (NEG) Urine Nitrite Negative (NEG) Urine Bilirubin Negative (NEG) Urine Urobilinogen Dipstick 0.2 mg/dL (0.2 mg/dL) Urine Leukocyte Esterase Negative (NEG) Urine RBC 0 /HPF (0-2) Urine WBC Rare /HPF (0-4) Urine Squamous Epithelial Cells Occ /LPF Urine Bacteria 0 /HPF (0-FEW) EKG: EKG: [] Radiology/Procedures: Radiology/Procedures: [] Course & Med Decision Making: Course & Med Decision Making Pertinent Labs and Imaging studies reviewed. (See chart for details) [] Dragon Disclaimer: Dragon Disclaimer: This electronic medical record was generated, in whole or in part, using a voice recognition dictation system. Departure Departure Impression: Primary Impression: Urethritis Disposition: HOME / SELF CARE / HOMELESS Condition: STABLE Referrals: NO PCP (PCP) Follow-up with local health department. Patient Instructions: Urethritis, Adult Scripts Doxycycline Hyclate (DOXYCYCLINE HYCLATE) 100 Mg Capsule 1 CAP PO BID for 14 Days, #28 CAP Prov: GONZALES GARCIA DO 07/05/20 GONZALES GARCIA DO July 05, 2020 20:59
[2020-07-05] MEDS ORDERED: cefTRIAXone IM 500 MG VIAL. IM ONE (21:00)
[2020-07-05] MEDS ORDERED: AZITHROMYCIN 250 MG TABLET. PO ONE (21:00)
[2020-07-05 21:28] VITALS: BP 109/64
== END 2020-07-05 21:47 | disposition home or self-care (01) ==
LOC: ER 19:48
DX: N34.2 Other urethritis (principal); F31.9 Bipolar disorder, unspecified; I10 Essential (primary) hypertension
CPT/HCPCS: 81001; 87491; 87591; 96372; 99283; J0696